=== PATIENT | female | born 1955 | race Caucasian/White ===

== ENCOUNTER 2018-02-01 15:05 | Emergency (ER) | payer OTHER, MEDICAID ==
[2018-02-01] MEDS: HYDROCODONE/APAP (5/325) TAB PO (19:49)
[2018-02-01] MEDS: DEXAMETHASONE 10 MG/ML 1 ML INJ IM (19:49)
== END 2018-02-01 20:11 | disposition home or self-care (01) ==
LOC: FTE 15:05
DX: M54.14 Radiculopathy, thoracic region (principal); M54.31 Sciatica, right side; M62.830 Muscle spasm of back; I10 Essential (primary) hypertension
CPT/HCPCS: 93005; 96372; 99284-25